=== PATIENT | male | born 1985 | race Caucasian/White ===

== ENCOUNTER 2017-01-08 02:04 | Emergency (ER) | payer BC ==
[2017-01-08 02:06] VITALS: BP 187/103; PULSE 57; RESP 16; TEMP 97.7; O2SAT 100
--- NOTE | 2017-01-08 03:15 | PD ---
HPI Chief Complaint: Foreign Body Time Seen by Provider: 03:12 Travel History International Travel<30 days: No Contact w/Intl Traveler<30days: No Traveled to known affect area: No History of Present Illness HPI 31-year-old male presents to emergency department with a foreign body in his left ear. He states that a moth flew in his ear. He used olive oil to kill it. He is here for foreign body removal. He denies any pain. No recent illness. PFSH Past Medical History Medical History: Denies Significant Hx Diminished Hearing: No Tetanus Vaccination: Unknown Influenza Vaccination: No Past Surgical History Surgical History: No Previous Surgery Social History Alcohol Use: No Tobacco Use: No Substance Use: No Allergies-Medications (Allergen,Severity, Reaction): Coded Allergies: No Known Allergies (Unverified , 01/08/17) Reported Meds & Prescriptions Reported Meds & Active Scripts Active No Active Prescriptions or Reported Medications Review of Systems Except as stated in HPI: all other systems reviewed are Neg Physical Exam Narrative GENERAL: This is a well-nourished, well-developed patient, in no apparent distress. SKIN: No rashes, ecchymoses or lesions. Warm and dry. HEAD: Atraumatic. Normocephalic. EYES: PERRL, EOMI, no discharge or injection. No scleral icterus. EARS: Clear right ear. The left ear TMs intact. There is a foreign body in the canal. NOSE: Nasal turbinates appear normal. THROAT: Mucosa pink and moist. Airway patent. NECK: Trachea midline. supple, moves head freely. LUNGS: Clear to auscultation. CV: Regular in rhythm. ABDOMEN: Soft nontender. EXT: No clubbing cyanosis or edema. Data Data Last Documented VS Vital Signs Date Time Temp Pulse Resp B/P Pulse Ox O2 Delivery O2 Flow Rate FiO2 01/08/17 02:06 97.7 57 16 187/103 100 MDM Medical Decision Making Medical Screen Exam Complete: Yes Emergency Medical Condition: Yes Medical Record Reviewed: Yes Differential Diagnosis Differential diagnoses: Foreign body in the ear canal, TM perforation, otitis media, otitis externa Narrative Course The foreign bodies removed without incidence. This is left ear foreign body removal Procedures Procedure Narrative Foreign body removal left ear canal: Using alligator forceps a bug foreign body is removed without incidence. The TM is intact without injury. Diagnosis Primary Impression: Acute foreign body of ear Qualified Code: T16.2XXA - Acute foreign body of ear, left, initial encounter Patient Instructions: General Instructions, Ear Foreign Body (ED) Departure Forms: Tests/Procedures Additional Instructions: RETURN TO ER IF ANY WORSENING SYMPTOMS OR PROBLEMS OCCUR Med/Other Pt SpecificInfo: No Meds Exist/No RX given Scripts No Active Prescriptions or Reported Meds Disposition: 01 DISCHARGE HOME Condition: Stable Marvin Patel Jan 08, 2017 03:15
== END 2017-01-08 03:15 | disposition home or self-care (01) ==
LOC: NEPB 02:04
DX: T16.2XXA Foreign body in left ear, initial encounter (principal); X58.XXXA Exposure to other specified factors, initial encounter; Y93.9 Activity, unspecified; Y92.9 Unspecified place or not applicable; Y99.9 Unspecified external cause status
CPT/HCPCS: 69200